=== PATIENT | male | born 1975 | race Caucasian/White ===

== ENCOUNTER 2022-03-29 10:50 | Emergency (ER) | payer BC ==
[~2022-03-29] VITALS: Ht 172.7 cm; Wt 150.9 kg
[2022-03-29] MEDS ORDERED: BOOSTRIX/ADACEL VACCINE (DIPHTH/PERTUSS/ACELL/TETANUS) 0.5ML SYR IM ONE (14:40)
[2022-03-29] MEDS ORDERED: LIDOCAINE 2% MDV 20ML VIAL SC ONE (14:40)
[2022-03-29 15:11] VITALS: BP 142/78
== END 2022-03-29 15:26 | disposition home or self-care (01) ==
LOC: M ED 10:50
DX: S61.412A Laceration without foreign body of left hand, initial encounter (principal); W26.0XXA Contact with knife, initial encounter; Y92.810 Car as the place of occurrence of the external cause; Y93.89 Activity, other specified; Y99.8 Other external cause status